=== PATIENT | female | born 1985 | race Caucasian/White ===

== ENCOUNTER 2018-08-03 15:31 | Emergency (ER) | payer BC ==
[~2018-08-03] VITALS: Ht 172.7 cm; Wt 113.6 kg
[2018-08-03 15:34] VITALS: BP 142/89; TEMP 98.1
[2018-08-03] MEDS ORDERED: EFFEXOR 75M75 MG/TAB PO (15:41)
[2018-08-03] MEDS ORDERED: D3-5050000 IU PO (15:42)
[2018-08-03 16:45] VITALS: PULSE 94
== END 2018-08-03 16:47 | disposition home or self-care (01) ==
LOC: COL.ER 15:31
DX: S61.411A Laceration without foreign body of right hand, initial encounter (principal); W26.8XXA Contact with other sharp object(s), not elsewhere classified, initial encounter

== ENCOUNTER → 2020-02-08 | Outpatient (CLI) | payer BC ==
[~2020-02-08] MED LIST: D3-5050000 IU PO; EFFEXOR 75M75 MG/TAB PO
== END ==
LOC: MC.RAD 01-21 07:45
DX: N63.10 Unspecified lump in the right breast, unspecified quadrant (principal)